=== PATIENT | male | born 1955 | race American Indian/Alaskan Native ===

== ENCOUNTER 2020-10-23 22:03 | Emergency (ER) | payer BC ==
[2020-10-23 22:08] VITALS: BP 136/74
[2020-10-23] MEDS ORDERED: SODIUM CHLORIDE 0.9% 1000 ML 1,000 ML IV ONE (22:08)
[2020-10-23] MEDS ORDERED: ACETAMINOPHEN 500 MG TAB PO ONE (22:11)
--- NOTE | 2020-10-23 22:11 | Event Note ---
ED Screening Note Date of service: 10/23/20 Time: 22:09 ED Screening Note: Patient is a 65-year-old -[place] male with a history of morbid obesity and hypertension who presents to the ED with complaint of acute onset persistent shortness of breath, dry cough, diffuse body aches and pains, fever and chills, nasal and sinus congestion, generalized weakness and lack of appetite with generalized fatigue for the last 4 days. Patient states that his was recently diagnosed with COVID-19 viral infection. Patient states that his symptoms got worse in the last 12 hours such that any exertion makes the shortness of breath worse. Patient denies dizziness, syncope, chest pain, nausea and vomiting or diarrhea, abdominal pain, sore throat, back pain, dysuria or hematuria and testicular pain. This initial assessment/diagnostic orders/clinical plan/treatment(s) is/are subject to change based on patients health status, clinical progression and re- assessment by fellow clinical providers in the ED. Further treatment and workup at subsequent clinical providers discretion. Patient/guardian urged not to elope from the ED as their condition may be serious if not clinically assessed and managed. Initial orders include: CBC, CMP, troponin, EKG, chest x-ray, nonrebreather oxygen, Tylenol
--- NOTE | 2020-10-24 04:55 | History and Physical Report ---
History of Present Illness Date of examination: 10/24/20 Date of admission: 10/24/20 Chief complaint: shortness of breath History of present illness: Patient is a 65-year-old -[place]aysian male with a history of morbid obesity and hypertension who presents to the ED with complaint of acute onset persistent shortness of breath, dry cough, diffuse body aches and pains, fever and chills, nasal and sinus congestion, generalized weakness and lack of appetite with g eneralized fatigue for the last 4 days. Patient states that his was recently diagnosed with COVID-19 viral infection. Patient states that his symptoms got worse in the last 12 hours such that any exertion makes the shortness of breath worse. Patient denies dizziness, syncope, chest pain, nausea and vomiting or diarrhea, abdominal pain, sore throat, back pain, dysuria or hematuria and testicular pain. Past History Past Medical History: cancer, hypertension, hyperlipidemia, other (Prostate CA) Past Surgical History: Other (Prostate removal-prostatectomy) Social history: , lives with family. denies: smoking, alcohol abuse, prescription drug abuse, IV drug use Family history: no significant family history Medications and Allergies Allergies Allergy/AdvReac Type Severity Reaction Status Date / Time amlodipine Allergy Unknown Verified 10/23/20 22:46 Review of Systems Constitutional: fatigue, weakness, malaise Ears, nose, mouth and throat: no epistaxis, no bleeding gums Cardiovascular: shortness of breath, dyspnea on exertion, high blood pressure Respiratory: congestion Gastrointestinal: no melena Genitourinary Male: no hematuria Rectal: hemorrhoids Musculoskeletal: muscle weakness, no morning stiffness Integumentary: no rash, no pruritis, no redness Neurological: no convulsions Hematologic/Lymphatic: no easy bruising, no easy bleeding Allergic/Immunologic: no urticaria Exam - Constitutional Vitals: Temp Pulse Resp BP Pulse Ox 100.1 F H 107 H 32 H 136/74 95 10/23/20 22:05 10/23/20 22:05 10/23/20 22:05 10/23/20 22:05 10/23/20 22:17 General appearance: Present: no acute distress, well-nourished - EENT Eyes: Present: PERRL ENT: hearing intact, clear oral mucosa - Neck Neck: Present: supple, normal ROM - Respiratory Respiratory effort: other (shortness of breath on rebreather mask) Respiratory: bilateral: CTA - Cardiovascular Heart Sounds: Present: S1 & S2. Absent: rub, click - Extremities Extremities: pulses symmetrical, No edema Peripheral Pulses: within normal limits - Abdominal General gastrointestinal: Present: soft, non-tender, non-distended, normal bowel sounds Male genitourinary: Present: normal - Integumentary Integumentary: Present: clear, warm, dry - Musculoskeletal Musculoskeletal: strength equal bilaterally, generalized weakness - Psychiatric Psychiatric: appropriate mood/affect, intact judgment & insight, cooperative - Neurologic Neurologic: CNII-XII intact, moves all extremities - Allied Health Allied health notes reviewed: nursing Assessment and Plan - Patient Problems (1) Pneumonia due to COVID-19 virus Current Visit: No Status: Acute (2) Acute respiratory failure with hypoxia Current Visit: Yes Status: Acute (3) Essential (primary) hypertension Current Visit: Yes Status: Acute (4) Hyperlipidemia Current Visit: Yes Status: Acute
[2020-10-24] MEDS ORDERED: SENNOSIDES 8.6 MG TAB PO PRN (05:04)
[2020-10-24] MEDS ORDERED: ACETAMINOPHEN 650 MG RECT SUPP PR PRN (05:04)
[2020-10-24] MEDS ORDERED: MAGNESIUM HYDROXIDE (MOM) ORAL LIQD UDC PO PRN (05:04)
[2020-10-24] MEDS ORDERED: NALOXONE 0.4 MG/1 ML INJ IV PRN (05:04)
[2020-10-24] MEDS ORDERED: HYDROcodone/ACETAMINOPHEN 5-325 MG TAB PO PRN (05:04)
[2020-10-24] MEDS ORDERED: ALUM-MAG HYDROXIDE-SIMETHICONE 200-200-20MG/5ML ORAL LIQD 30 ML PO PRN (05:04)
[2020-10-24] MEDS ORDERED: oxyCODONE /ACETAMINOPHEN 5-325MG TAB PO PRN (05:04)
[2020-10-24] MEDS ORDERED: METOCLOPRAMIDE 10 MG/2 ML INJ IV PRN (05:04)
[2020-10-24] MEDS ORDERED: ALPRAZolam 0.25 MG TAB PO PRN (05:04)
[2020-10-24] MEDS ORDERED: MORPHINE 2 MG/1 ML INJ IV PRN (05:04)
[2020-10-24] MEDS ORDERED: traZODone 50 MG TAB PO PRN (05:13)
[2020-10-24] MEDS ORDERED: hydrALAZINE 20 MG/1 ML INJ IV PRN (05:13)
[2020-10-24 07:02] LABS: C-Reactive Protein 10.6 mg/dL (0.00-1.30)
[2020-10-24] MEDS ORDERED: ENOXAPARIN 40 MG/0.4 ML INJ SUB-Q SCH (10:00)
[2020-10-24] MEDS ORDERED: FAMOTIDINE 20 MG/2 ML INJ IV SCH (10:00)
[2020-10-24] MEDS ORDERED: dexAMETHasone 4 MG/ML VIAL IV SCH (10:00)
[2020-10-24] MEDS ORDERED: cefTRIAXone/NS 2 GM/100 ML 2 GM/100 ML BAG IV SCH (22:00)
[2020-10-24] MEDS ORDERED: AZITHROMYCIN/NS 500 MG/250 ML 500 MG/250 ML BAG IV SCH (22:00)
== END 2020-10-23 22:04 ==
LOC: ED 22:03 → UNDOADMIN 10-24 07:48 → CC1 10-24 07:48
DX: R06.02 Shortness of breath (principal); Z53.21 Procedure and treatment not carried out due to patient leaving prior to being seen by health care provider
CPT/HCPCS: 85379